=== PATIENT | female | born 1955 | race Two or more races ===

== ENCOUNTER 2020-08-21 06:00 | Day surgery (SDC) | payer OTHER ==
[~2020-08-21 06:00] MED LIST: CHILDREN'S ASPI81 MG PO; GABAPENTIN800 M1 PO; JANUMET XR 50-1 EAC1 PO; LEVO-T88 MCG PO; LIPITOR20 MG PO; LOSARTAN-HCTZ1 EAC2 PO; PLAVIX75 MG PO; SINGULAIR4 MG PO
== END 2020-08-21 14:15 | disposition home or self-care (01) ==
LOC: CIR.AMB 06:00
PROVIDERS: ATTEND Surgery Surgery of the Hand
DX: M65.841 Other synovitis and tenosynovitis, right hand (principal); Z20.822 Contact with and (suspected) exposure to COVID-19